=== PATIENT | male | born 1990 ===

== ENCOUNTER → 2020-03-15 13:07 | Outpatient (CLI) | payer OTHER | END | disposition home or self-care (01) | LOC: LAB 13:07 | PROVIDERS: ATTEND Emergency Medicine Pediatric Emergency Medicine | DX: Z03.818 Encounter for observation for suspected exposure to other biological agents ruled out (principal) ==

== ENCOUNTER 2020-03-22 08:58 | Outpatient (CLI) | payer OTHER | END 2020-03-22 10:00 | disposition home or self-care (01) | LOC: LAB 08:58 | DX: Z03.818 Encounter for observation for suspected exposure to other biological agents ruled out (principal) ==

== ENCOUNTER 2020-03-23 08:34 | Outpatient (CLI) | payer OTHER | END 2020-03-23 15:00 | disposition home or self-care (01) | LOC: LAB 08:34 | DX: Z03.818 Encounter for observation for suspected exposure to other biological agents ruled out (principal) ==

== ENCOUNTER → 2020-07-25 07:48 | Outpatient (CLI) | payer OTHER | END | disposition home or self-care (01) | LOC: LAB 07:48 | PROVIDERS: ATTEND Emergency Medicine Pediatric Emergency Medicine | DX: Z03.818 Encounter for observation for suspected exposure to other biological agents ruled out (principal) ==